=== PATIENT | female | born 1995 | race Caucasian/White ===

== ENCOUNTER 2016-06-23 23:05 | Emergency (ER) | payer BC ==
[2016-06-24] MEDS ORDERED: Azithromycin TAB* 250 MG PO ONE (00:53)
[2016-06-24 01:02] VITALS: BP 114/80
== END 2016-06-24 01:17 | disposition home or self-care (01) ==
LOC: ED 23:05
DX: J02.9 Acute pharyngitis, unspecified (principal)
CPT/HCPCS: 87070; 87651; 99282; A9270-GY

== ENCOUNTER 2017-01-18 20:12 | Emergency (ER) | payer SELFPAY ==
[2017-01-18 20:26] VITALS: BP 117/62
--- NOTE | 2017-01-19 01:05 | ED ---
Clara Sosa Alfonso, scribed for Leonarda Angel MD on 01/18/17 at 2048 . Complex/Multi-Sys Presentation - HPI Summary HPI Summary: This patient is a 21 year old F presenting to [facility] with a chief complaint of blood exposure to her right eye at 1935 today. 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 A patients blood from a hemovac drain splash in her right eye. Her eye was flushed at wash station for approximately 5 minutes. She was not wearing protective eye wear at this time. The patient rates the pain 0/ 10 in severity. Symptoms aggravated by nothing. Symptoms alleviated by flushed eyes at emergency eye wash station. PMHx includes anxiety for which she takes alazopram and hydroxyzine PRN. Pt's source exposure agrees to HIV testing. - History Of Current Complaint Chief Complaint: EDExposureBodyFluid Time Seen by Provider: 01/18/17 20:34 Hx Obtained From: Patient Onset/Duration: Sudden Onset, Lasting Minutes - 1944 today, Resolved - eye flushed Timing: Constant Severity Currently: None Severity Initially: Moderate Aggravating Factor(s): nothing Alleviating Factor(s): flushed eyes at emergency eye wash station Associated Signs And Symptoms: Positive: Other - no associated symptoms - Allergies/Home Medications Allergies/Adverse Reactions: Allergies Allergy/AdvReac Type Severity Reaction Status Date / Time Zolpidem [From Ambien] Allergy HALLUCINATI Verified 03/19/16 08:28 ON PMH/Surg Hx/FS Hx/Imm Hx Previously Healthy: No Endocrine/Hematology History: Denies: Hx Diabetes, Hx Thyroid Disease Cardiovascular History: Denies: Hx Hypertension, Other Cardiovascular Problems/Disorders Respiratory History: Reports: Hx Asthma - A CHILD Denies: Hx Chronic Obstructive Pulmonary Disease (COPD), Other Respiratory Problems/Disorders GI History: Denies: Hx Ulcer, Other GI Disorders Musculoskeletal History: Denies: Other Musculoskeletal History Sensory History: Denies: Hx Contacts or Glasses, Hx Hearing Aid Opthamlomology History: Denies: Hx Contacts or Glasses Neurological History: Denies: Other Neuro Impairments/Disorders Psychiatric History: Reports: Hx Anxiety - ON MEDS FOR SLEEP - Surgical History Surgery Procedure, Year, and Place: reconstructive face surgery as a child. Hx Anesthesia Reactions: No Infectious Disease History: No Infectious Disease History: Denies: Hx Hepatitis, Hx Human Immunodeficiency Virus (HIV), Traveled Outside the [place] in Last 30 Days - Family History Known Family History: Positive: Cardiac Disease, Hypertension, Other - Lung cancer - Social History Occupation: Employed Full-time Alcohol Use: Weekly Alcohol Amount: 1 PER WEEK Substance Use Type: Reports: None Smoking Status (MU): Never Smoked Tobacco Have You Smoked in the Last Year: No Review of Systems Negative: Fever Positive: Other - blood exposure to her right eye, no change in vision, no eye pain or drainage Skin: Negative Neurological: Negative Psychological: Normal All Other Systems Reviewed And Are Negative: Yes Physical Exam Triage Information Reviewed: Yes Vital Signs On Initial Exam: Initial Vitals Temp Pulse Resp BP Pulse Ox 97.9 F 81 20 117/62 99 01/18/17 20:17 10 20:17 10 20:17 01/18/17 20:17 01/18/17 20:17 Vital Signs Reviewed: Yes Appearance: Positive: Well-Appearing, No Pain Distress, Well-Nourished Skin: Positive: Warm, Skin Color Reflects Adequate Perfusion Head/Face: Positive: Normal Head/Face Inspection Eyes: Positive: EOMI, CHASE, Conjunctiva Clear. Negative: Discharge ENT: Positive: Normal ENT inspection Neck: Positive: Supple Respiratory/Lung Sounds: Positive: Other - No respiratory distress Cardiovascular: Positive: RRR, Other - Brisk capillary refill. Negative: Murmur Musculoskeletal: Positive: Strength/ROM Intact Neurological: Positive: Sensory/Motor Intact, Alert, Oriented to Person Place, Time, Normal Gait, Facial Symmetry, Speech Normal Psychiatric: Positive: Normal - [place] Coma Scale Coma Scale Total: 15 Diagnostics - Vital Signs Vital Signs Temp Pulse Resp BP Pulse Ox 01/18/17 20:17 97.9 F 81 20 117/62 99 - Laboratory Lab Statement: Any lab studies that have been ordered have been reviewed, and results considered in the medical decision making process. Re-Evaluation - Re-Evaluation First Eval Re-Evaluation Time: 22:40 - per lab [id number] source tested is HIV negative Change: Unchanged Complex Multi-Symp Course/Dx Assessment/Plan: This patient is a 21 year old F presenting to [facility] with a chief complaint of blood exposure to her right eye at 1935 today. She is a short stay nurse. A patients blood from a hemovac drain splash in her right eye. Her eye was flushed at wash station for approximately 5 minutes. She was not wearing protective eye wear at this time. The patient rates the pain 0/10 in severity. Symptoms aggravated by nothing. Symptoms alleviated by flushed eyes at emergency eye wash station. PMHx includes anxiety for which she takes alazopram and hydroxyzine PRN. Followed [facility] employee protocol for body fluid exposure. Consulted PEP hotline [phone] which recommended waiting for source testing. Informed by [id number] a rapid HIV is negative. She is stable for discharge at 2255. No PEP meds recommended. Hep B and Hep C testing pending. The patient is agreeable with this plan. Pt stable to return to work. - Diagnoses Differential Diagnoses/HQI/PQRI: Other - body fluid exposure Provider Diagnoses: Employee exposure to body fluids Discharge - Discharge Plan Condition: Stable Disposition: HOME Patient Education Materials: Postexposure Prophylaxis (ED) Referrals: Non Staff,Doctor [Primary Care Provider] - Additional Instructions: The source testing was negative. There are pending tests on your blood regarding hepatitis B and C. Follow up with Employee Health in 48 hrs and your PCP as needed. Return to ED if any new or worsening symptoms. May return to work now 2300 01/18/17 without restrictions. The documentation as recorded by the Clara guerrero Alfonso accurately reflects the service I personally performed and the decisions made by , Leonarda Angel MD.
[2017-01-19 15:38] LABS: Manual Entry Verification GRE0060; Rapid HIV INT CONT QC Line Present; Rapid HIV Kit Lot# H017003
== END 2017-01-18 23:26 | disposition home or self-care (01) ==
LOC: ED 20:12
DX: Z77.21 Contact with and (suspected) exposure to potentially hazardous body fluids (principal); F41.9 Anxiety disorder, unspecified
CPT/HCPCS: 36415; 86703; 86706; 86803; 87340; 99282